=== PATIENT | male | born 1995 | race African-American/Black ===

== ENCOUNTER 2021-12-07 19:35 | Emergency (ER) | payer OTHER ==
[~2021-12-07] VITALS: Ht 182.9 cm; Wt 86.2 kg
[2021-12-07 21:57] LABS: *BILIRUBIN,URIN NEGATIVE (NEGATIVE); *BLOOD, URINE NEGATIVE (NEGATIVE); *CLARITY,URINE CLEAR (CLEAR); *COLOR,URINE YELLOW (YELLOW); *KETONES,URINE NEGATIVE (NEGATIVE); *UROBILINOGEN,URINE 0.2 E.U./dl (NORMAL); LEUKOCYTE ESTERASE ,URINE NEGATIVE (NEGATIVE); NITRITE, URINE NEGATIVE (NEGATIVE); UGLUCOSE NEGATIVE (NEGATIVE)
[2021-12-07] MEDS: ACETAMINOPHEN 325 MG TABLET PO ONE (22:52)
--- NOTE | 2021-12-07 22:52 | NUR ---
Patient discharged to home in stable condition. Written and verbal after care instructions given. Patient verbalizes understanding of instructions. Stressed follow up or return to ER for worsening s/s.
[2021-12-07 22:53] VITALS: BP 122/93
[2021-12-07] MEDS ORDERED: ACETAMINOPHEN 325 MG TABLET ONE (22:57)
== END 2021-12-07 22:53 | disposition home or self-care (01) ==
LOC: ER 19:40
DX: N50.82 Scrotal pain (principal); Z88.0 Allergy status to penicillin
CPT/HCPCS: A4663